=== PATIENT | female | born 1990 ===

== ENCOUNTER 2023-04-01 03:11 | Inpatient (IN) | payer OTHER ==
[~2023-04-01] VITALS: Ht 162.6 cm; Wt 66.4 kg
[2023-04-01] VITALS (17 sets, daily range): BP systolic 104–138; BP diastolic 56–74
[2023-04-01] MEDS ORDERED: PRENATAL TABLE1 EAC2 (03:33)
[2023-04-01 11:19] LABS: BASOPHILS ABSOLUTE AUTO 0.02 K/mm3 (0.00-0.23); BASOPHILS PERCENT AUTO 0 % (0-2); EOSINOPHILS ABSOLUTE AUTO 0.01 K/mm3 (0.00-0.68); EOSINOPHILS PERCENT AUTO 0 % (0-6); Hemoglobin 11.9 g/dL (11.5-16.0); IMMATURE GRAN ABSOLUTE AUTO 0.03 K/mm3 (0.00-0.10); IMMATURE GRAN PERCENT AUTO 0 % (0-1); LYMPHOCYTES ABSOLUTE AUTO 1.59 K/mm3 (0.84-5.20); LYMPHOCYTES PERCENT AUTO 17 % (21-46); MONOCYTES ABSOLUTE AUTO 0.59 K/mm3 (0.16-1.47); MONOCYTES PERCENT AUTO 6 % (4-13); Mean Corpuscular HGB 27.2 pg (26.0-34.0); Mean Corpuscular HGB Conc 32.2 g/dL (31.5-36.5); Mean Corpuscular Volume 85 fL (80-100); NEUTROPHILS ABSOLUTE AUTO 7.29 K/mm3 (1.96-9.15); NEUTROPHILS PERCENT AUTO 77 % (41-73); Platelet Count 230 K/mm3 (150-400); RDW Coefficient Variation 16.8 % (11.7-14.2); RDW Standard Deviation 50.2 fL (35.1-46.3); Red Blood Cell Count 4.38 M/mm3 (3.80-5.20); White Blood Cell Count 9.53 K/mm3 (4.00-11.30)
--- NOTE | 2023-04-01 23:06 | NUR ---
pt sitting in bed holding baby. pt requested donor milk. Provided 15 ml of Donor milk. upon returning with Donor Milk Pt was attempting to feed baby again. No other needs at this time.
[2023-04-02 00:20] VITALS: BP 114/61
[2023-04-02 05:26] VITALS: BP 107/66
--- NOTE | 2023-04-02 08:18 | NUR ---
ROUNDED ON PT AT 703 AND AGAIN AT 804, PT IS SLEEPING SOUNDLY. SPOKE TO DAD AT 804 AND REQUESTED PT PRESS CALL LIGHT WHEN SHE WAKES UP.
[2023-04-02 09:36] VITALS: BP 115/65
[2023-04-02] MEDS ORDERED: ACET500 PO (13:05)
[2023-04-02] MEDS ORDERED: IBUP800 PO (13:05)
[2023-04-02 14:00] VITALS: BP 115/66
--- NOTE | 2023-04-02 14:28 | NUR ---
PATIENT DISCHARGE EDUCATION REVIEWED WITH PATIENT AND SO. BOTH VERBALIZED UNDERSTANDING, DENIED ANY FURTHER QUESTIONS OR CONCERNS AT THIS TIME. VITAL STABLE. PATIENT DISCHARGED HOME WITH AND SO AT SIDE.
== END 2023-04-02 14:20 | disposition home or self-care (01) | DRG 807 ==
LOC: BC 03:11 → EDBD 03:11 → OBS 03:11 → BC 03:14 → OBS 03:27 → BC 03:30
PROVIDERS: ADMIT Advanced Practice Midwife
PROC: 10E0XZZ Delivery of Products of Conception, External Approach (ICD-10-PCS; principal; 2023-04-01)
PROC: 10907ZC Drainage of Amniotic Fluid, Therapeutic from Products of Conception, Via Natural or Artificial Opening (ICD-10-PCS; 2023-04-01)
DX: O24.420 Gestational diabetes mellitus in childbirth, diet controlled (principal); Z37.0 Single live birth; Z3A.39 39 weeks gestation of pregnancy
CPT/HCPCS: 36415; 59025; 85025; 86850; 86900; 86901; A9270; J2590; J3010